=== PATIENT | female | born 2000 | race Caucasian/White ===

== ENCOUNTER → 2020-08-26 14:33 | Outpatient (CLI) | payer OTHER, SELFPAY ==
--- NOTE | 2020-08-26 14:36 | DI.US.S_ITS ---
PROCEDURE: US OB <= 14 WEEKS FETUS INDICATIONS: DATING AND VIABILITY. IUD REMOVED MAY 2020. OUTSIDE/PRIOR DATING DATA: First dating scan (date and location): 08/26/2020. Estimated date of delivery (ROSELIA) from first dating scan: 03/02/2021. TECHNIQUE: Real-time scanning was performed of the fetus and maternal pelvic organs, with image documentation. Endovaginal scanning was also performed to better visualize the fetus and maternal ovaries. COMPARISON: None. FINDINGS: Embryo: Cable-rump length measures 6.8 cm corresponding to 13 weeks 1 day Heart rate: 158 Measurement variability in dating: +/- 4 weeks by LMP, +/- 7 days by mean sac diameter (use before 6 weeks gestation if crown-rump length not able to be measured), +/- 5 days by crown-rump length (up to 8 weeks 6 days gestation), +/- 7 days by crown-rump length (up to 13 weeks 6 days gestation). Maternal organs: Right ovary not well visualized and grossly normal appearance left ovary. IMPRESSION: 13 week 1 day single living IUP Dictated by: Enrico Benites [facility] Interpreted: Onelia Arreguin MD on 08/26/2020 at 16:32 Transcribed by: HERMINIA on 08/26/2020 at 16:33 Approved by: Onelia Arreguin M.D. on 08/26/2020 at 18:59
[2020-08-26 15:06] LABS: Add Manual Diff / Slide Review NO; Basophils Absolute Auto 0 /uL (0-100); Basophils Percent Auto 0.2 % (0-2); Eosinophils Absolute Auto 100 /uL (0-450); Eosinophils Percent Auto 0.8 % (2-4); Hematocrit 37.9 % (36-46); Hemoglobin 12.8 g/dL (12.0-16.0); Lymphocytes Absolute Auto 1900 /uL (1100-4500); Lymphocytes Percent Auto 23.2 % (25-40); Mean Corpuscular HGB Conc 33.8 % (30-36); Mean Corpuscular Volume 85.7 fL (80-100); Monocytes Absolute Auto 400 /uL (0-900); Monocytes Percent Auto 4.7 % (3-14); Neutrophils Absolute Auto 5900 /uL (1500-7000); Neutrophils Percent Auto 71.1 % (50-75); Platelet Count 268 X10^3/uL (150-400); Red Blood Cell Count 4.42 X10^6/uL (4.0-5.2); White Blood Cell Count 8.3 X10^3/uL (4.5-11.0)
[2020-08-26 16:48] LABS: Hepatitis B Surface Antigen NEGATIVE s/c (NEGATIVE)
[2020-08-26 17:00] LABS: Appearance Urine UA CLOUDY; Bilirubin Urine UA NEGATIVE (NEGATIVE); Color Urine UA YELLOW; Glucose Urine UA NEGATIVE (Negative); Ketones Urine UA NEGATIVE (NEGATIVE); Leukocyte Esterase Urine UA NEGATIVE (NEGATIVE); Nitrite Urine UA NEGATIVE (Negative); Occult Blood Urine UA NEGATIVE (Negative); Protein Urine UA NEGATIVE (Negative); Urobilinogen Urine UA 0.2 E.U./dL (0.2)
[2020-08-26 17:02] LABS: pH Urine UA 6.5 (4.5-8.0)
[2020-08-26 17:05] LABS: HIV 1 & 2 Ab/Ag 4th Gen Combo NEGATIVE (NEGATIVE); Hep C Virus Ab w/Reflex Quant NEGATIVE s/c (NEGATIVE)
[2020-08-27 06:16] LABS: RPR Screen Non Reactive (Non Reactive)
[2020-08-27 07:58] LABS: Varicella IgG Antibody 2086 index (Immune >165)
== END ==
PROVIDERS: Referring Provider Obstetrics & Gynecology; Visit Provider Obstetrics & Gynecology
DX: Z34.81 Encounter for supervision of other normal pregnancy, first trimester (principal); Z3A.13 13 weeks gestation of pregnancy
CPT/HCPCS: 36415; 76801; 76830; 80055; 81003; 86787; 86803; 86850; 86900; 86901; 87086; 87389

== ENCOUNTER → 2020-09-09 11:19 | Outpatient (CLI) | payer OTHER, MEDICAID, SELFPAY | PROVIDERS: PCP Student in an Organized Health Care Education/Training Program; Referring Provider Obstetrics & Gynecology; Visit Provider Obstetrics & Gynecology | DX: Z34.91 Encounter for supervision of normal pregnancy, unspecified, first trimester (principal); Z36.0 Encounter for antenatal screening for chromosomal anomalies | CPT/HCPCS: 36415 ==

== ENCOUNTER 2020-09-23 16:52 | Observation (INO) | payer OTHER, MEDICAID, SELFPAY ==
[2020-09-23 18:10] LABS: RBC Urine None Seen (0-5/HPF)
[2020-09-23 18:14] LABS: Appearance Urine UA SL CLOUDY; Bilirubin Urine UA NEGATIVE (NEGATIVE); Color Urine UA YELLOW; Glucose Urine UA NEGATIVE (Negative); Ketones Urine UA NEGATIVE (NEGATIVE); Leukocyte Esterase Urine UA NEGATIVE (NEGATIVE); Nitrite Urine UA NEGATIVE (Negative); Occult Blood Urine UA NEGATIVE (Negative); Protein Urine UA NEGATIVE (Negative); Urobilinogen Urine UA 0.2 E.U./dL (0.2)
[2020-09-23 18:26] LABS: Amorphous Sediment Urine 1+; Bacteria Urine Few (2-10); Culture Indicated Urine Specimen Cultured; Mucus Urine 1+ (Negative); Squamous Epithelial Cell Urine 5-10 /HPF (0-5/HPF); WBC Urine 1-5/HPF (0-5/HPF)
== END 2020-09-23 18:00 | disposition home or self-care (01) ==
LOC: LABOR 16:55
PROVIDERS: Admitting Provider Obstetrics & Gynecology; PCP Student in an Organized Health Care Education/Training Program; Referring Provider Obstetrics & Gynecology; Visit Provider Obstetrics & Gynecology
DX: R51.9 Headache, unspecified (principal); Z20.822 Contact with and (suspected) exposure to COVID-19
CPT/HCPCS: 81001; 87086; 87635; G0378; G0379

== ENCOUNTER → 2020-09-23 18:24 | Outpatient (CLI) | payer OTHER, MEDICAID, SELFPAY ==
[2020-09-23 19:49] LABS: COVID19 -Nasal RAPID Negative (Negative)
== END ==
PROVIDERS: PCP Student in an Organized Health Care Education/Training Program; Visit Provider Nurse Practitioner
DX: R51.9 Headache, unspecified (principal); Z20.822 Contact with and (suspected) exposure to COVID-19
CPT/HCPCS: 87635

== ENCOUNTER → 2020-10-06 09:09 | Outpatient (CLI) | payer OTHER, MEDICAID, SELFPAY ==
[2020-10-08 19:24] LABS: AFP Value 38.4 ng/mL (.); Insulin Dep Diabetes No (.); OSBR Risk 1IN 10000 (.); Results Report (.); Test Results *Screen Negative* (.)
== END ==
PROVIDERS: PCP Student in an Organized Health Care Education/Training Program; Referring Provider Obstetrics & Gynecology; Visit Provider Obstetrics & Gynecology
DX: Z34.82 Encounter for supervision of other normal pregnancy, second trimester (principal); Z3A.19 19 weeks gestation of pregnancy
CPT/HCPCS: 36415; 82105

== ENCOUNTER → 2020-10-15 14:58 | Outpatient (CLI) | payer OTHER, MEDICAID, SELFPAY ==
--- NOTE | 2020-10-15 15:00 | DI.US.S_ITS ---
PROCEDURE: US OB >= 14 WEEKS FETUS INDICATIONS: Anatomy Scan OUTSIDE/PRIOR DATING DATA: First dating scan (date and location): 08/26/2020 . Estimated date of delivery (ORSELIA) from first dating scan: 03/02/2021 . TECHNIQUE: Real-time scanning was performed of the fetus, with image documentation and biometric measurements. Endovaginal scanning: No COMPARISON: [facility], , OB >= 14 WEEKS FETUS, 10/06/2020, 8:58. FINDINGS: General: A single living intrauterine gestation is present. Presentation: Vertex. Placenta: Placental position is anterior , without previa. Amniotic fluid index: 16.0 cm, normal range is 5-24 cm. heart rate: 153 beats per minute. Maternal cervical canal: 3.3 cm long. Normal lower limit is 2.5 cm. Possible lower uterine segment uterine synechiae. biometrics: Biparietal diameter: 20 weeks 6 days Head circumference: 20 weeks 4 days Abdominal circumference: 20 weeks 3 days Femur length: 20 weeks 1 day Estimated gestational age from initial scan: 20 weeks 2 days Composite gestational age from present scan: 20 weeks 4 days Estimated weight and percentile: 346 g; 47th percentile Measurement variability for biometric dating: +/- 7 days from 14 weeks to 15 weeks 6 days gestation, +/- 10 days from 16 weeks to 21 weeks 6 days gestation, +/- 2 weeks from 22 weeks to 27 weeks 6 days gestation, +/- 3 weeks for 28 weeks gestation or later. weight reference: 4500 g or EFW >90/95% is considered macrosomia or large for gestational age. EFW <10% is small for gestational age. EFW 5% or less is considered intra-uterine growth restriction. Anatomic survey: Neuro: Ventricles are non-dilated at less than 10 mm. Cisterna magna is normal at 3-11 mm. Cerebellum is normal in size and morphology. Nuchal skin fold: Normal at less than 6 mm between 14-21 weeks gestational age. Face: Nose and lips, facial profile are normal. Spine: No evidence for spina bifida. Heart: 4-chambered heart is present, with normal ventricular outflow tracts. Diaphragm: Diaphragm is intact. Stomach: Left-sided stomach is present. Kidneys: No hydronephrosis. Normal is less than 5 mm in 2nd trimester, less than 7 mm in 3rd trimester. Cord: 3-vessel cord has orthotopic insertion. Bladder: Normal in size. Extremities: All 4 extremities identified. IMPRESSION: 1. Normal interval growth. 2. Normal anatomic survey. Dictated by: Enrico Benites [facility] Interpreted: Everardo Hill MD on 10/15/2020 at 16:12 Transcribed by: BERNADETTE on 10/15/2020 at 16:13 Approved by: Everardo Hill M.D. on 10/15/2020 at 16:28
== END ==
PROVIDERS: PCP Student in an Organized Health Care Education/Training Program; Referring Provider Obstetrics & Gynecology; Visit Provider Obstetrics & Gynecology
DX: Z34.92 Encounter for supervision of normal pregnancy, unspecified, second trimester (principal); Z3A.20 20 weeks gestation of pregnancy
CPT/HCPCS: 76811

== ENCOUNTER → 2020-11-10 12:52 | Outpatient (CLI) | payer OTHER, MEDICAID, SELFPAY ==
[2020-11-10 14:07] LABS: Hematocrit 36.1 % (36-46); Hemoglobin 11.8 g/dL (12.0-16.0)
[2020-11-10 14:25] LABS: GTT (PREG) 1 Hour PP 50gm Dose 138 mg/dL (76-139)
== END ==
PROVIDERS: PCP Student in an Organized Health Care Education/Training Program; Referring Provider Obstetrics & Gynecology; Visit Provider Obstetrics & Gynecology
DX: Z34.82 Encounter for supervision of other normal pregnancy, second trimester (principal); Z3A.25 25 weeks gestation of pregnancy
CPT/HCPCS: 36415; 82950; 85014; 85018

== ENCOUNTER 2020-11-26 17:22 | Observation (INO) | payer OTHER, MEDICAID, SELFPAY ==
[2020-11-26 18:42] LABS: Appearance Urine UA CLEAR; Bilirubin Urine UA NEGATIVE (NEGATIVE); Color Urine UA YELLOW; Glucose Urine UA NEGATIVE (Negative); Ketones Urine UA 1+ (NEGATIVE); Leukocyte Esterase Urine UA NEGATIVE (NEGATIVE); Nitrite Urine UA NEGATIVE (Negative); Occult Blood Urine UA NEGATIVE (Negative); Protein Urine UA NEGATIVE (Negative); Specific Gravity Urine UA 1.025 (1.000-1.035); Urobilinogen Urine UA 0.2 E.U./dL (0.2)
[2020-11-26] MEDS: NIFEdipine 10 MG CAPSULE PO ×4 (18:43→19:55)
[2020-11-26 19:07] LABS: Bacteria Urine Few (2-10); Culture Indicated Urine Cult Not Indicated; RBC Urine 0-1/HPF (0-5/HPF); Squamous Epithelial Cell Urine 10-30 /HPF (0-5/HPF); WBC Urine 1-5/HPF (0-5/HPF)
--- NOTE | 2020-11-26 19:22 | DI.US.S_ITS ---
PROCEDURE: US OB LIMITED INDICATIONS: UTERINE IRRITABILITY; CERVICAL LENGTH OUTSIDE/PRIOR DATING DATA: Last menstrual period (LMP): Unknown . LMP-based estimated date of delivery (ROSELIA): Unknown LMP First dating scan (date and location): 08/26/2020 Estimated date of delivery (ROSELIA) from first dating scan: 03/02/2021 TECHNIQUE: Real-time scanning was performed of the fetus, with image documentation. COMPARISON: None. FINDINGS: A single living intrauterine gestation is present. Presentation: Vertex Placenta: Placental position is anterior , without previa. Amniotic fluid index: 21.8 cm cm, normal range is 5-24 cm. heart rate: 141 beats per minute. Maternal cervical canal: 3.1 cm long. Normal lower limit is 2.5 cm. Estimated gestational age from initial scan: 26 weeks 2 days . IMPRESSION: 1. Estimated gestational age 26 weeks 2 days. 2. The cervix is closed measuring 3.1 cm. Dictated by: Ruben Benitez M.D. on 11/26/2020 at 20:56 Approved by: Ruben Benitez M.D. on 11/26/2020 at 20:57
--- NOTE | 2020-11-26 20:15 | PM.OBTRLD ---
Visit Information Visit Information Date of evaluation: 11/26/20 Primary OB Provider: Mica Anderson On-call OB Provider: Qamar Rosales Reason for Evaluation: Yes pre-term labor Comments/Additional reasons for admission: Remigio was sent to the [facility] from the office after being seen for a variety of complaints. She had started having uterine cramps on the afternoon of 11/26/2020 while at work. Her cramps subsided after arrival at the office but she was sent for further evaluation on the . While on the thus far, the patient has received oral and IV hydration as well as 4 doses of nifedipine 10 mg p.o. Q 20 minutes with her contractions having subsided somewhat but she continues to have uterine irritability. Ultrasound obtained which shows cervical length to be 3.1 cm but transvaginal study was performed before FFN, GBS, GC/CT could be obtained. Vital Signs Vital Signs: See OBIX VS record [facility] Medical History Anxiety (~2012) Chlamydia (~2014) Chronic nasal congestion (~2011) Depression (~2012) Fatty liver disease, nonalcoholic (~12/2019) Gonorrhea (~2018) History of multiple miscarriages Migraine (~08/2020) Ovarian cyst (~2018) Post depression (~2016) PTSD (post-traumatic stress disorder) Smoker (spontaneous vaginal delivery) (~12/12/16) (spontaneous vaginal delivery) (~12/13/19) Surgical History [facility] teeth extracted (~2015) Family History Father Drug addiction in remission Mother Fibromyalgia Diabetes mellitus Type 2 diabetes mellitus Degenerative disc disease Anxiety Depression Drug addiction in remission Grandfather No problems noted. 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.) current occupational exposures/hazards: Yes special raymond needs: No Smoking Status: Current every day smoker (1.5 packs per day : now down to 2 per day) Tobacco: How many years used: 5 second hand exposure: Yes alcohol intake: former (pre- : very, very occasionally ) substance use type: does not use and marijuana (H/O Marijuana use) Exam Const General: cooperative and anxious (Hx of anxiety disorder) Orientation: alert and oriented x3 HENMT Head: normocephalic and atraumatic Nose: external nose normal Face and sinus: face symmetric Eyes Conjunctivae: conjunctivae normal Sclera: sclerae normal EOM: EOM intact bilaterally GI Inspection: other (Gravid) Palpation: soft and no hepatosplenomegaly General: other (Exam deferred due to TVUS having been performed earlier) Uterus Location (Fundal Height): 26 Psych Speech and Movement: restless Mood: anxious mood Affect: animated Attitude: guarded Thought Process: other Thought Content: normal Judgment: fair Objective Labs Labs: Laboratory Results - last 24 hr 11/26/20 18:05 Urine Color Yellow Urine Appearance Clear Urine pH 6.0 Ur Specific [place] 1.025 Urine Protein Negative Urine Glucose (UA) Negative Urine Ketones 1+ H Urine Occult Blood Negative Urine Nitrate Negative Urine Bilirubin Negative Urine Urobilinogen 0.2 Ur Leukocyte Esterase Negative Urine RBC 0-1/hpf Urine WBC 1-5/hpf Ur Squamous Epith Cells 10-30 /hpf H Urine Bacteria Few (2-10) H Ur Culture Indicated? Cult not indicated Evaluation Evaluation Baseline heart rate: 160 Variability: Average (6-10) monitor accelerations: Present Monitor Decelerations: Absent Contraction Frequency (minutes): 5 Uterine Contraction Intensity: Mild Category of Tracing: Reactive Status: Category l Diagnosis, Plan/Disposition Final Diagnosis (1) Premature uterine contractions causing threatened premature labor: Status: Acute (2) Headache in , antepartum: Status: Acute Plan/Disposition Plan: IV Hydration and PO nifedipine have significantly decreased but not eliminated the patient's uterine irritability. Nurse-led efforts to reduce the patient's anxiety have been successful however and her uterine irritability has finally stopped. Patient to receive a 30 mg XR dose of nifedipine prior to discharge and a prescription for 10 mg Nifedipine every 20 minutes x 4 doses should her uterine irritability return. If those 4 doses of nifedipine do not promptly terminate the uterine irritability, the patient was instructed contact the office immediately for further evaluation. A note for work was provided so that she can be off tomorrow. OB Disposition: home
[2020-11-26] MEDS: BUTALB/APAP/CAFFEINE 50/325/40 TABLET 2 EACH PO (21:17)
== END 2020-11-26 21:30 | disposition home or self-care (01) ==
PROVIDERS: Student in an Organized Health Care Education/Training Program; Admitting Provider Obstetrics & Gynecology; PCP Student in an Organized Health Care Education/Training Program; Referring Provider Obstetrics & Gynecology; Visit Provider Obstetrics & Gynecology
DX: O47.02 False labor before 37 completed weeks of gestation, second trimester (principal); O26.892 Other specified pregnancy related conditions, second trimester; R51.9 Headache, unspecified; Z3A.26 26 weeks gestation of pregnancy
CPT/HCPCS: 59025; 59050; 76815; 76817; 81001; 96360; G0378; G0379

== ENCOUNTER → 2020-12-29 15:09 | Outpatient (ROUT) | payer OTHER, MEDICAID, SELFPAY ==
[2020-12-29 15:48] LABS: Fetal Fibronectin Negative
== END ==
PROVIDERS: PCP Student in an Organized Health Care Education/Training Program; Visit Provider Obstetrics & Gynecology
DX: Z34.83 Encounter for supervision of other normal pregnancy, third trimester (principal); Z3A.31 31 weeks gestation of pregnancy
CPT/HCPCS: 82731

== ENCOUNTER 2021-01-24 18:13 | Outpatient (CLI) | payer OTHER, MEDICAID, SELFPAY ==
[2021-01-24 18:47] LABS: Appearance Urine UA SL CLOUDY; Bilirubin Urine UA NEGATIVE (NEGATIVE); Color Urine UA YELLOW; Glucose Urine UA NEGATIVE (Negative); Ketones Urine UA NEGATIVE (NEGATIVE); Leukocyte Esterase Urine UA NEGATIVE (NEGATIVE); Nitrite Urine UA NEGATIVE (Negative); Occult Blood Urine UA NEGATIVE (Negative); Protein Urine UA NEGATIVE (Negative); Urobilinogen Urine UA 0.2 E.U./dL (0.2)
[2021-01-24 18:49] LABS: pH Urine UA 6.5 (4.5-8.0)
[2021-01-24 19:23] LABS: Bacteria Urine Few (2-10); Culture Indicated Urine Cult Not Indicated; Mucus Urine 1+ (Negative); RBC Urine None Seen (0-5/HPF); Squamous Epithelial Cell Urine 1-5 /HPF (0-5/HPF); Transitional Epi Cells Urine 1-5/HPF (0-5/HPF); WBC Urine 1-5/HPF (0-5/HPF)
== END 2021-01-24 19:45 | disposition home or self-care (01) ==
LOC: LABOR 18:55 → OB 01-25 14:23
PROVIDERS: PCP Student in an Organized Health Care Education/Training Program; Referring Provider Obstetrics & Gynecology; Visit Provider Obstetrics & Gynecology
DX: Z03.71 Encounter for suspected problem with amniotic cavity and membrane ruled out (principal); Z3A.34 34 weeks gestation of pregnancy
CPT/HCPCS: 59025; 81001; 87210; G0378; G0379

== ENCOUNTER → 2021-01-26 11:02 | Outpatient (CLI) | payer OTHER, MEDICAID, SELFPAY ==
[2021-01-27 07:52] LABS: Strep Grp B PCR NEG for Grp B Strep
== END ==
PROVIDERS: PCP Student in an Organized Health Care Education/Training Program; Visit Provider Obstetrics & Gynecology
DX: Z34.83 Encounter for supervision of other normal pregnancy, third trimester (principal); Z3A.35 35 weeks gestation of pregnancy
CPT/HCPCS: 87653

== ENCOUNTER 2021-01-29 15:29 | Outpatient (CLI) | payer OTHER, MEDICAID, SELFPAY | END 2021-01-29 16:19 | disposition home or self-care (01) | LOC: OB 01-31 09:46 | PROVIDERS: PCP Student in an Organized Health Care Education/Training Program; Referring Provider Specialist; Visit Provider Specialist | DX: O47.03 False labor before 37 completed weeks of gestation, third trimester (principal); O99.333 Smoking (tobacco) complicating pregnancy, third trimester; F17.210 Nicotine dependence, cigarettes, uncomplicated; Z3A.36 36 weeks gestation of pregnancy | CPT/HCPCS: 59025; G0378; G0379 ==

== ENCOUNTER 2021-02-05 15:44 | Outpatient (CLI) | payer OTHER, MEDICAID, SELFPAY | END 2021-02-05 16:35 | disposition home or self-care (01) | LOC: LABOR 15:48 → OB 02-07 14:43 | PROVIDERS: PCP Student in an Organized Health Care Education/Training Program; Referring Provider Obstetrics & Gynecology; Visit Provider Obstetrics & Gynecology | DX: Z03.71 Encounter for suspected problem with amniotic cavity and membrane ruled out (principal); O36.8130 Decreased fetal movements, third trimester, not applicable or unspecified; Z3A.36 36 weeks gestation of pregnancy | CPT/HCPCS: 59025; 84112; G0378; G0379 ==

== ENCOUNTER 2021-02-14 14:58 | Outpatient (CLI) | payer OTHER, MEDICAID, SELFPAY | END 2021-02-14 15:44 | disposition home or self-care (01) | LOC: OB 02-15 07:31 | PROVIDERS: PCP Student in an Organized Health Care Education/Training Program; Referring Provider Obstetrics & Gynecology; Visit Provider Obstetrics & Gynecology | DX: O47.1 False labor at or after 37 completed weeks of gestation (principal); Z3A.37 37 weeks gestation of pregnancy | CPT/HCPCS: 59025; G0378; G0379 ==

== ENCOUNTER 2021-02-23 07:03 | Inpatient (IN) | payer OTHER, MEDICAID, SELFPAY ==
[2021-02-23 08:29] LABS: COVID19 -Nasal RAPID Negative (Negative)
[2021-02-23] MEDS: LACTATED RINGERS 1,000 ML 100 ML IV ×2 (08:45→12:29)
[2021-02-23] MEDS: OXYTOCIN PREMIX 30 UNIT/500 ML PLAST..BAG IV (08:46)
[2021-02-23] MEDS: CALCIUM CARBONATE 500 MG TAB 1000 MG PO ×3 (08:52→14:17)
[2021-02-23 08:54] LABS: Add Manual Diff / Slide Review NO; Basophils Absolute Auto 0 /uL (0-100); Basophils Percent Auto 0.4 % (0-2); Eosinophils Absolute Auto 0 /uL (0-450); Eosinophils Percent Auto 0.4 % (2-4); Hematocrit 32.9 % (36-46); Hemoglobin 10.9 g/dL (12.0-16.0); Lymphocytes Absolute Auto 2100 /uL (1100-4500); Lymphocytes Percent Auto 19.4 % (25-40); Mean Corpuscular HGB Conc 33.2 % (30-36); Mean Corpuscular Hemoglobin 28.1 PG (26-34); Mean Corpuscular Volume 84.5 fL (80-100); Monocytes Absolute Auto 800 /uL (0-900); Monocytes Percent Auto 7.2 % (3-14); Neutrophils Absolute Auto 7900 /uL (1500-7000); Neutrophils Percent Auto 72.6 % (50-75); Platelet Count 233 X10^3/uL (150-400); Red Blood Cell Count 3.89 X10^6/uL (4.0-5.2); Red Cell Distribution Width 13.7 % (11.6-14.8); White Blood Cell Count 10.9 X10^3/uL (4.5-11.0)
[2021-02-23 10:34] VITALS: BP 116/76
--- NOTE | 2021-02-23 12:37 | P.HPOB_ITS ---
OB HPI Date/Time Date of admission: 02/23/21 Date Patient Seen: 02/23/21 Time Patient Seen: 12:37 History of Present Condition Chief complaint: OBS : 7 Para: 2 Estimated Date of Delivery: 03/02/21 Estimated Gestational Age (weeks): 39 Narrative: Remigio Dela Cruz is a 20 year old female admitted for induction for prolonged prodromal labor Indications Indication for induction OB: maternal discomfort History of Present care: good care, initiated at week # (15), number of visits (12) and pounds weight gain (18) Dating criteria: based on 2nd trimester US only Ultrasounds: normal mid trimester US Obstetrical complications: none Medical complications: none Preadmission Labs Blood type: O (+) positive -: Antibody screen: negative, GBS status: negative, HBsAG: negative, HIV: negative and RPR/VDLR: negative -: Chlamydia screen: not detected and Gonorrhea screen: not detected -: Rubella: not immune and Varicella: immune HCAB: negative Cell-free DNA: Normal male 1 hr GTT: 138 Prior (ies) History: 12/12/2016 37 week gestation 6 lb 14 oz male vaginal delivery with epidural 12/13/2019 36 week gestation 5 lb 2 oz male vaginal delivery induced for oligohydramnios epidural Evaluation Evaluation Baseline heart rate: 125 Variability: Moderate (11-25) monitor accelerations: Present Monitor Decelerations: Absent Category of Tracing: Reactive Status: Category l Dilation (cm): 4 Effacement (%): 85 station: -1 Position of cervix: mid Consistency: soft [facility] Medical History (Updated 02/16/21 @ 10:07 by Qamar Rosales MD) Anxiety (~2012) Chlamydia (~2014) Chronic nasal congestion (~2011) Depression (~2012) Fatty liver disease, nonalcoholic (~12/2019) Gonorrhea (~2018) History of multiple miscarriages Migraine (~08/2020) Ovarian cyst (~2018) Post depression (~2016) Premature uterine contractions causing threatened premature labor PTSD (post-traumatic stress disorder) Smoker (spontaneous vaginal delivery) (~12/12/16) (spontaneous vaginal delivery) (~12/13/19) Surgical History [place] teeth extracted (~2015) Family History Father Drug addiction in remission Mother Fibromyalgia Diabetes mellitus Type 2 diabetes mellitus Degenerative disc disease Anxiety Depression Drug addiction in remission Grandfather No problems noted. 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.) current occupational exposures/hazards: Yes special raymond needs: No Smoking Status: Former smoker Tobacco: How many years used: 5 second hand exposure: Yes alcohol intake: former (pre- : very, very occasionally ) substance use type: does not use and marijuana (H/O Marijuana use) Meds Home Medications and Allergies Home Medications Medication Instructions Recorded Confirmed Type prenat.vits,lalo,pfs-fzsl-afopl 1 tab PO DAILY 08/31/20 02/23/21 History butalbital 50 mg-acetaminophen 300 1 cap PO Q4H PRN #30 cap 11/26/20 02/23/21 Rx mg-caffeine 40 mg-codeine 30 mg cap (Fioricet with Codeine) meclizine 25 mg tablet 25 mg PO QID #30 tab 11/26/20 02/23/21 Rx Allergies Allergy/AdvReac Type Severity Reaction Status Date / Time No Known Drug Allergies Allergy Verified 02/09/21 11:05 Review of Systems Review of Systems Narrative: Patient has been having good movement. No leakage of fluid. No headaches, scotomata, epigastric pain. OB Exam Narrative Exam Narrative: Blood pressure 113/75, pulse 67, temperature 35.7? HEENT exam within normal limits. Lungs are clear to auscultation percussion. Heart is regular rate and rhythm no S3-S4 murmurs. Abdomen is gravid. Fetus is vertex. Extremities without edema and nontender. Objective Labs Result Diagrams: 02/23/21 08:40 Labs: Laboratory Results - last 24 hr 02/23/21 02/23/21 02/23/21 07:55 08:40 08:40 WBC 10.9 RBC 3.89 L Hgb 10.9 L Hct 32.9 L MCV 84.5 MCH 28.1 MCHC 33.2 RDW 13.7 Plt Count 233 Neut % (Auto) 72.6 Lymph % (Auto) 19.4 L [place] % (Auto) 7.2 Eos % (Auto) 0.4 L Baso % (Auto) 0.4 Neut # (Auto) 7900 H Lymph # (Auto) 2100 [place] # (Auto) 800 Eos # (Auto) 0 Baso # (Auto) 0 SARS-CoV-2 (PCR) Negative Blood Type O Positive Antibody Screen Negative Assessment and Plan Assessment and Plan Assessment and Plan narrative: 39 week gestation admitted for induction for maternal discomfort. Patient underwent a AROM for clear fluid. She is requesting epidural when needed for pain. Anticipate vaginal delivery. Time Spent with Patient Total time spent with greater than 50% in coordination of care (as documented) at patient's floor/unit and/or counseling patient:: less than 15 minutes
--- NOTE | 2021-02-23 13:07 | PM.AN.REGBLK ---
Regional Block Pre-procedure Procedure: Continuous Lumbar Epidural for L&D Attending OB provider: Francy Albert PMH/ROS narrative: term labor, no complications ASA Class: II Labs: Hct 32.9 % (36-46) L 02/23/21 08:40 Plt Count 233 X10^3/uL (150-400) 02/23/21 08:40 Medications: Current Medications Generic Name Dose Route Start Last Admin Trade Name Freq PRN Reason Stop Dose Admin Calcium Carbonate 1,000 mg 02/23/21 07:55 02/23/21 11:04 Calcium Carbonate 500 Mg Tab PO 1,000 mg Q2HR PRN Administration Dyspepsia Carboprost Tromethamine 250 mcg 02/23/21 07:55 Carboprost 250 Mcg/Ml Ampul IM Q90M PRN Bleeding Diphenhydramine HCl 25 mg 02/23/21 11:44 Diphenhydramine 50 Mg/Ml Vial IV Q10M PRN Pruritis Lactated Ringer's 1,000 mls @ 100 mls/hr 02/23/21 08:00 02/23/21 12:29 Lactated Ringers IV 100 mls/hr CONT FRANDY Administration Oxytocin/Lactated Ringer's 30 unit in 500 mls @ 200 mls/hr 02/23/21 07:55 Oxytocin Premix IV CONT PRN Bleeding Protocol Tranexamic Acid 1,000 mg/ 100 mls @ 200 mls/hr 02/23/21 07:55 Sodium Chloride IV NOW PRN Bleeding Oxytocin/Lactated Ringer's 30 unit in 500 mls @ 3 mls/hr 02/23/21 08:00 02/23/21 08:46 Oxytocin Premix IV 3 milliunit/min TITRATE FRANDY 3 mls/hr Administration Protocol 3 MILLIUNIT/MIN FENT 2MCG/ML BUPIV 0.125% EPI 200 mcg in 100 mls @ 6 mls/hr 02/23/21 11:45 Fentanyl/Bupiv/Ns 2mcg/Ml - 0.125% EPIDURAL CONT FRANDY Methylergonovine Maleate 0.2 mg 02/23/21 07:55 Methylergonovine 0.2 Mg Tablet PO Q6HR PRN Heavy Bleeding Methylergonovine Maleate 0.2 mg 02/23/21 07:55 Methylergonovine 0.2 Mg/Ml Vial IM NOW PRN Bleeding Misoprostol 800 mcg 02/23/21 07:55 Misoprostol 200 Mcg Tablet MT NOW PRN Bleeding Misoprostol 1,000 mcg 02/23/21 07:55 Misoprostol 200 Mcg Tablet MT NOW PRN Bleeding Misoprostol 400 mcg 02/23/21 07:55 Misoprostol 200 Mcg Tablet SL NOW PRN Bleeding Nalbuphine HCl 2.5 mg 02/23/21 11:44 Nalbuphine 20 Mg/Ml Ampul IV Q10M PRN Pruritis Ondansetron HCl 4 mg 02/23/21 07:55 Ondansetron 4 Mg/2 Ml Inj IV Q4HR PRN Nausea And Vomiting Oxytocin 10 unit 02/23/21 07:55 Oxytocin 10 Unit/Ml Vial IM NOW PRN Bleeding Allergies: Allergies Allergy/AdvReac Type Severity Reaction Status Date / Time No Known Drug Allergies Allergy Verified 02/09/21 11:05 Procedure Insertion date: 02/23/21 Insertion time: 13:53 Prep/Local: betadine x3 and 1% lidocaine Interspace: L3-4 Patient position: sitting Needle: 18 gauge Youxigu (CSE: 27g Pencan through Hustead, clear CSF, 1mL 0.25% MPF bupiv) Loss of resistance with: saline CINTIA at (cm): 7 Catheter placed at SKIN (cm): 13 Catheter in SPACE (cm): 6 Insertion: No CSF, No Blood, No Paresthesia with insertion, No Paresthesia with injection and No Test dose reaction Initial Medications TEST DOSE time: 13:53 TEST DOSE: 1.5% lidocaine with epinephrine 1:200k (mL): 3 BOLUS DOSE time: 14:01 BOLUS DOSE (mL): 3 BOLUS DOSE med: other (infusate) Infusion INFUSION: 0.125% bupivacaine and with fentanyl 2 mcg/mL Initial rate (mL/hr): 8 Subsequent interventions: Post-procedure Anesthesia time START: 13:45 Anesthesia time END: 16:07 Post-procedure Anesthesia Assessment: Yes CV function: HR/BP stable, Yes Resp function: RR/sat/airway adequate, Yes Mental status appropriate and No Anesthesia complications
[2021-02-23] MEDS: FENT 2MCG/ML BUPIV 0.125% EPI 200 MCG/100 ML PLAST..BAG 6 MCG EPIDURAL (13:55)
--- NOTE | 2021-02-23 16:54 | P.PCNOB_ITS ---
Labor & Delivery Delivery date: 02/23/21 Intrapartal Events: None Cervical ripening method: none Induction method: per pitocin protocol Delivery augmentation: rupture of membranes Delivery monitor: external FHT and external uterine Route of delivery: L&D Laceration Description: None Estimated blood loss (mL): 150 Anesthesia Type: Epidural Narrative: Patient arrived on Labor and delivery for induction for maternal discomfort. She was started on Pitocin. She had AROM for clear fluid. heart tones category 1 to category 2 throughout labor. She received an epidural catheter for pain control. She had a spontaneous vaginal delivery over an intact perineum. A tight nuchal cord was unable to be released prior to delivery of the baby. Requested the baby be placed on the warmer in clean prior to placing in the baby with the patient. The placenta delivered spontaneously, intact, with 3 vessels. There were no cervical, vaginal, or perineal tears. 1st stage of labor 3 hours and 21 minutes, 2nd stage of labor 14 minutes, 3rd stage of labor 3 minutes. Total rupture membranes 3 hours and 35 minutes. [place] Baby 1: gender: Male Presentation: vertex Position: Right Occiput Anterior Placenta delivery description: Spontaneous Cord Vessel Description: 3 Vessels and Tight score (1 min): 9 score (5 min): 9 weight: 6 lb 7 oz Plan for aftercare: Routine care
[2021-02-23] MEDS: IBUPROFEN 600 MG TABLET PO (19:12)
[2021-02-23] MEDS: DOCUSATE 100 MG CAPSULE PO (19:13)
[2021-02-23] MEDS: ACETAMINOPHEN 325 MG TABLET 650 MG PO (23:14)
[2021-02-23] MEDS: LANOLIN OINT 7 GM 1 APPLIC TOP (23:15)
[2021-02-24] MEDS: IBUPROFEN 600 MG TABLET PO ×2 (01:43→08:19)
[2021-02-24 07:26] LABS: Add Manual Diff / Slide Review NO; Basophils Absolute Auto 0 /uL (0-100); Basophils Percent Auto 0.5 % (0-2); Eosinophils Absolute Auto 100 /uL (0-450); Eosinophils Percent Auto 1.2 % (2-4); Hemoglobin 11.1 g/dL (12.0-16.0); Lymphocytes Absolute Auto 2000 /uL (1100-4500); Lymphocytes Percent Auto 20.5 % (25-40); Mean Corpuscular HGB Conc 33.7 % (30-36); Mean Corpuscular Hemoglobin 28.3 PG (26-34); Mean Corpuscular Volume 83.8 fL (80-100); Monocytes Absolute Auto 700 /uL (0-900); Monocytes Percent Auto 7.4 % (3-14); Neutrophils Absolute Auto 6900 /uL (1500-7000); Neutrophils Percent Auto 70.4 % (50-75); Platelet Count 220 X10^3/uL (150-400); Red Blood Cell Count 3.94 X10^6/uL (4.0-5.2); Red Cell Distribution Width 13.5 % (11.6-14.8); White Blood Cell Count 9.9 X10^3/uL (4.5-11.0)
--- NOTE | 2021-02-24 08:17 | PM.OBDS.1 ---
Discharge Providers Provider Date of admission: 02/23/21 07:03 Discharge Date: 02/24/21 Primary care physician: Lynn Green MD Consults: 02/23/21 08:00 Consult to Anesthesiology Urgent Comment: Consulting Provider: Trixie Baker Reason for consultation: epidural 02/24/21 16:52 Consult to Dye Automation Operator Routine Comment: Discharge provider: Francy Albert MD Summary Hospital Course Date Patient Seen: 02/24/21 Time Patient Seen: 08:17 Diagnoses: 39 week gestation, spontaneous vaginal delivery Hospital Course: Patient arrived on Labor and delivery to be induced for maternal discomfort. She was started on Pitocin. She received epidural catheter for pain control. She had a spontaneous vaginal delivery of a viable male with no tears. The patient is ambulatory. Pain is under control. Bleeding is moderate. No headaches, scotomata, epigastric pain. Peripartum Data Infant Delivery Method: Natural Vaginal Laceration Description: None Procedures: Pitocin induction, epidural catheter, spontaneous vaginal delivery complications: none 1: Gender: Male Disposition of : home Discharge Diagnosis (1) Vaginal delivery: Status: Acute Status at Discharge Cognitive/behavioral status at discharge: oriented Functional status at discharge: independent ambulation Overall status at discharge: patient is progressing back to baseline Time Spent with Patient Time attestation: Total time spent providing and/or coordinating discharge services: Time spent: Less than 30 minutes Objective Labs Result Diagrams: 02/24/21 06:59 Labs: Laboratory Results - last 24 hr 02/23/21 02/23/21 02/23/21 07:55 08:40 08:40 WBC 10.9 RBC 3.89 L Hgb 10.9 L Hct 32.9 L MCV 84.5 MCH 28.1 MCHC 33.2 RDW 13.7 Plt Count 233 Neut % (Auto) 72.6 Lymph % (Auto) 19.4 L [place] % (Auto) 7.2 Eos % (Auto) 0.4 L Baso % (Auto) 0.4 Neut # (Auto) 7900 H Lymph # (Auto) 2100 [place] # (Auto) 800 Eos # (Auto) 0 Baso # (Auto) 0 SARS-CoV-2 (PCR) Negative Blood Type O Positive Antibody Screen Negative 02/24/21 06:59 WBC 9.9 RBC 3.94 L Hgb 11.1 L Hct 33.0 L MCV 83.8 MCH 28.3 MCHC 33.7 RDW 13.5 Plt Count 220 Neut % (Auto) 70.4 Lymph % (Auto) 20.5 L [place] % (Auto) 7.4 Eos % (Auto) 1.2 L Baso % (Auto) 0.5 Neut # (Auto) 6900 Lymph # (Auto) 2000 [place] # (Auto) 700 Eos # (Auto) 100 Baso # (Auto) 0 SARS-CoV-2 (PCR) Blood Type Antibody Screen Exam Vital Signs (past 8 hours): Blood pressure 109/73, pulse 101, temperature 98? Narrative Exam Narrative: Abdomen is soft, nontender. Uterus is firm, at U-1, nontender. Perineum was intact. Mild lochia. Extremities without edema and nontender. Patient is Rh positive, rubella nonimmune so will get the rubella vaccine prior to discharge, she did received Tdap in the 3rd trimester. Discharge Plan Discharge Plan Patient Disposition: Home Discharge orders & Medications Prescriptions: New docusate sodium 100 mg Capsule 100 mg PO BID PRN (Reason: Constipation) Qty: 20 0RF ferrous sulfate [FeroSul] 325 mg (65 mg iron) tablet 325 mg PO DAILY Qty: 20 0RF ibuprofen [IBU] 600 mg tablet 600 mg PO Q6H PRN (Reason: pain) Qty: 20 0RF hydrocodone-acetaminophen 5-325 mg tablet 1 tab PO Q4-6H PRN (Reason: pain) Qty: 10 0RF Continued meclizine 25 mg tablet 25 mg PO QID Qty: 30 3RF ozcxquagsv-dqssaxtvak-eia-cod [Fioricet with Codeine] [id number] mg capsule 1 cap PO Q4H PRN (Reason: pain) Qty: 30 2RF prenat.vits,lalo,ggv-podt-ebiqg Tablet 1 tab PO DAILY 0RF Follow up/Referrals: Lynn Green MD [Primary Care Provider] - Mica Anderson MD [Physician] - 6 Weeks Diet/Activity/Treatments Diet: Regular Activity: nothing in vagina for 6 weeks Skin/Wound/Dressing Care Report to your healthcare provider any signs of infection, such as:: chills, fever Discharge Data Primary Care Provider: Lynn Green
[2021-02-24] MEDS: DOCUSATE 100 MG CAPSULE PO (08:18)
[2021-02-24] MEDS: FERROUS SULFATE 325 MG TABLET PO (08:19)
[2021-02-24 09:42] VITALS: BP 105/76; PULSE 81; RESP 18; TEMP 36.6
[2021-02-24] MEDS: ACETAMINOPHEN 325 MG TABLET 650 MG PO (12:05)
== END 2021-02-24 14:03 | disposition home or self-care (01) | DRG 807 ==
PROVIDERS: Specialist; Admitting Provider Obstetrics & Gynecology; PCP Student in an Organized Health Care Education/Training Program; Referring Provider Obstetrics & Gynecology; Visit Provider Obstetrics & Gynecology
DX: O63.0 Prolonged first stage (of labor) (principal); Z37.0 Single live birth; Z3A.39 39 weeks gestation of pregnancy; O69.1XX0 Labor and delivery complicated by cord around neck, with compression, not applicable or unspecified; Z20.822 Contact with and (suspected) exposure to COVID-19
CPT/HCPCS: 01967; 36415; 59050; 59400; 59409; 85025; 86850; 86900; 86901; 87635; C9803; G0379; J2590

== ENCOUNTER 2022-06-22 18:14 | Emergency (ER) | payer OTHER, SELFPAY ==
[2022-06-22 18:18] VITALS: BP 121/71; PULSE 100; RESP 18; TEMP 36.6; O2SAT 98; BMI 35.8
--- NOTE | 2022-06-22 19:43 | PC.NURSE ---
Unable to locate pt in lobby.
== END 2022-06-22 19:55 | disposition left against medical advice (07) ==
PROVIDERS: Emergency Provider Emergency Medicine; PCP Student in an Organized Health Care Education/Training Program
CPT/HCPCS: 99281

== ENCOUNTER → 2022-07-19 12:08 | Outpatient (CLI) | payer OTHER, SELFPAY ==
[2022-07-19 13:15] LABS: Add Manual Diff / Slide Review NO; Basophils Absolute Auto 0 /uL (0-100); Basophils Percent Auto 0.3 % (0-2); Eosinophils Absolute Auto 300 /uL (0-450); Eosinophils Percent Auto 2.8 % (2-4); Hematocrit 36.3 % (36-46); Hemoglobin 12.4 g/dL (12.0-16.0); Lymphocytes Absolute Auto 2600 /uL (1100-4500); Mean Corpuscular HGB Conc 34.2 % (30-36); Mean Corpuscular Hemoglobin 28.8 PG (26-34); Mean Corpuscular Volume 84.2 fL (80-100); Monocytes Absolute Auto 500 /uL (0-900); Monocytes Percent Auto 4.9 % (3-14); Neutrophils Absolute Auto 7000 /uL (1500-7000); Platelet Count 272 X10^3/uL (150-400); Red Blood Cell Count 4.31 X10^6/uL (4.0-5.2); Red Cell Distribution Width 12.4 % (11.6-14.8); White Blood Cell Count 10.4 X10^3/uL (4.5-11.0)
[2022-07-20 10:55] LABS: RPR Screen Non Reactive (Non Reactive); Varicella IgG Antibody 2102 index (Immune >165)
[2022-07-20 16:30] LABS: HIV 1 & 2 Ab/Ag 4th Gen Combo NEGATIVE (NEGATIVE); Hep C Virus Ab w/Reflex Quant NEGATIVE s/c (NEGATIVE); Hepatitis B Surface Antigen NEGATIVE s/c (NEGATIVE); Rubella Antibody IgG 10.8 IU/mL (>15)
== END ==
PROVIDERS: PCP Student in an Organized Health Care Education/Training Program; Referring Provider Obstetrics & Gynecology; Visit Provider Obstetrics & Gynecology
DX: Z34.81 Encounter for supervision of other normal pregnancy, first trimester (principal)
CPT/HCPCS: 36415; 80055; 86787; 86803; 86850; 86900; 86901; 87086; 87389

== ENCOUNTER → 2022-09-13 11:03 | Outpatient (CLI) | payer OTHER, SELFPAY ==
[2022-09-13 14:26] LABS: Urine Chlamydia NOT DETECTED; Urine N gonorrhoeae NOT DETECTED
== END ==
PROVIDERS: PCP Student in an Organized Health Care Education/Training Program; Visit Provider Specialist
DX: Z11.3 Encounter for screening for infections with a predominantly sexual mode of transmission (principal); Z20.2 Contact with and (suspected) exposure to infections with a predominantly sexual mode of transmission
CPT/HCPCS: 87491; 87591

== ENCOUNTER → 2022-09-13 11:06 | Outpatient (CLI) | payer OTHER, SELFPAY ==
[2022-09-14 03:06] LABS: HSV 2 IGG AB < 0.91 index (0.00-0.90); HSV1IGG < 0.91 index (0.00-0.90)
[2022-09-14 16:13] LABS: Hepatitis B Surface Antigen NEGATIVE s/c (NEGATIVE)
[2022-09-14 16:23] LABS: HIV 1 & 2 Ab/Ag 4th Gen Combo NEGATIVE (NEGATIVE); Hep C Virus Ab w/Reflex Quant NEGATIVE s/c (NEGATIVE)
[2022-09-15 21:33] LABS: AFP Value 40.7 ng/mL (.); Insulin Dep Diabetes No (.); OSBR Risk 1IN 10000 (.); Results Report (.); Test Results *Screen Negative* (.)
== END ==
PROVIDERS: PCP Student in an Organized Health Care Education/Training Program; Referring Provider Specialist; Visit Provider Specialist
DX: Z34.82 Encounter for supervision of other normal pregnancy, second trimester (principal); Z20.2 Contact with and (suspected) exposure to infections with a predominantly sexual mode of transmission; Z11.3 Encounter for screening for infections with a predominantly sexual mode of transmission; Z3A.18 18 weeks gestation of pregnancy
CPT/HCPCS: 36415; 82105; 86695; 86696; 86803; 87340; 87389; 87491; 87591

== ENCOUNTER → 2022-10-06 11:28 | Outpatient (CLI) | payer OTHER, SELFPAY ==
[2022-10-06 11:58] LABS: Appearance Urine UA CLEAR; Bilirubin Urine UA NEGATIVE (NEGATIVE); Color Urine UA YELLOW; Glucose Urine UA NEGATIVE (Negative); Ketones Urine UA NEGATIVE (NEGATIVE); Leukocyte Esterase Urine UA NEGATIVE (NEGATIVE); Nitrite Urine UA NEGATIVE (Negative); Occult Blood Urine UA NEGATIVE (Negative); Protein Urine UA NEGATIVE (Negative); Specific Gravity Urine UA >=1.030 (1.000-1.035)
[2022-10-06 12:00] LABS: pH Urine UA 6.5 (4.5-8.0)
[2022-10-06 12:08] LABS: Bacteria Urine Moderate (10-30); Culture Indicated Urine Specimen Cultured; Mucus Urine 2+ (Negative); RBC Urine None Seen (0-5/HPF); Squamous Epithelial Cell Urine >30 /HPF (0-5/HPF); WBC Urine 5-10/HPF (0-5/HPF)
== END ==
PROVIDERS: PCP Student in an Organized Health Care Education/Training Program; Referring Provider Specialist; Visit Provider Specialist
DX: R30.9 Painful micturition, unspecified (principal)
CPT/HCPCS: 81001; 87086

== ENCOUNTER → 2022-10-11 08:33 | Outpatient (CLI) | payer OTHER, SELFPAY ==
--- NOTE | 2022-10-11 08:34 | DI.US.S_ITS ---
PROCEDURE: US OB >= 14 WEEKS FETUS INDICATIONS: ANATOMY OUTSIDE/PRIOR DATING DATA: Last menstrual period (LMP): 05/10/2022 LMP-based estimated date of delivery (ROSELIA): 02/14/2023 First dating scan (date and location): 07/19/2022 Estimated date of delivery (ROSELIA) from first dating scan: 02/14/2023 The calculations are made using the working ROSELIA of 02/14/2023. TECHNIQUE: Real-time scanning was performed of the fetus, with image documentation and biometric measurements. Endovaginal scanning: Not indicated COMPARISON: [facility], , OB >= 14 WEEKS FETUS, 08/16/2022, 10:10. FINDINGS: General: A single living intrauterine gestation is present. Presentation: Variable Placenta: Placental position is posterior, without previa. Amniotic fluid index: 18.0 cm, normal range is 5-24 cm. Single deepest vertical pocket is 4.7 cm. heart rate: 132 beats per minute. Maternal cervical canal: 3.6 cm long. Normal lower limit is 2.5 cm. biometrics: Biparietal diameter: 5.1 cm, 21 weeks, 4 days. Head circumference: 18.8 cm, 21 weeks, 1 day. Abdominal circumference: 17.2 cm, 22 weeks, 1 day. Femur length: 3.7 cm, 21 weeks, 5 days Clinically estimated gestational age: 22 weeks, 0 day. Composite gestational age from present scan: 21 weeks, 5 days. Estimated weight and percentile: 454 g, 35%. Anatomic survey: Neuro: Ventricles are non-dilated at less than 10 mm. Cisterna magna is normal at 3-11 mm. Cerebellum is normal in size and morphology. Nuchal skin fold: Normal at less than 6 mm between 14-21 weeks gestational age. Face: nose is not well seen. Rest of the facial profile is normal. Spine: No evidence for spina bifida. Heart: 4-chambered heart is present, with normal ventricular outflow tracts. Diaphragm: Diaphragm is intact. Stomach: Left-sided stomach is present. Kidneys: No hydronephrosis. Normal is less than 5 mm in 2nd trimester, less than 7 mm in 3rd trimester. Cord: 3-vessel cord has orthotopic insertion. Bladder: Normal in size. Extremities: All 4 extremities identified. Incidentally noted of veol-hd-[id number] right-sided hydronephrosis and increased vascularity in bilateral kidneys. Gallbladder is visualized and is within normal limits. IMPRESSION: 1. Single live intrauterine gestation with fetus in variable presentation. heart rate is or 132 beats per minute. Normal amount of amniotic fluid. Normal growth. Estimated weight is at 35%. 2. nose is not well seen on this study. Rest of the anatomic survey is within normal limits. 3. Incidentally noted of increased vascularity in bilateral kidneys consistent with clinical history of UTI. Kpjp-vo-mdnvrthq right-sided hydronephrosis. We strive to produce accurate, complete, and clear reports of imaging services. To assist us in improving patient care, this report was composed using standard report templates and voice recognition software. Therefore, it may contain abnormal punctuation, insertions and/or omissions. Occasional wrong-word or sound-alike substitutions may occur. Though we review the report and make efforts to correct it, we do recommend that the report be read carefully in proper context to recognize any text inaccuracies. Dictated by: Everardo Hill M.D. on 10/11/2022 at 10:11 Approved by: Everarod Hill M.D. on 10/11/2022 at 10:17
== END ==
PROVIDERS: PCP Student in an Organized Health Care Education/Training Program; Referring Provider Obstetrics & Gynecology; Visit Provider Obstetrics & Gynecology
DX: Z34.82 Encounter for supervision of other normal pregnancy, second trimester (principal); Z3A.21 21 weeks gestation of pregnancy
CPT/HCPCS: 76811

== ENCOUNTER 2022-12-05 11:00 | Outpatient (CLI) | payer OTHER, SELFPAY | END 2022-12-05 11:25 | disposition home or self-care (01) | LOC: OB 12-08 11:04 | PROVIDERS: PCP Student in an Organized Health Care Education/Training Program; Referring Provider Obstetrics & Gynecology; Visit Provider Obstetrics & Gynecology | DX: O36.8130 Decreased fetal movements, third trimester, not applicable or unspecified (principal); O42.913 Preterm premature rupture of membranes, unspecified as to length of time between rupture and onset of labor, third trimester; Z3A.30 30 weeks gestation of pregnancy | CPT/HCPCS: 59025; 84112; G0378; G0379 ==

== ENCOUNTER → 2023-01-18 22:41 | Outpatient (ROUT) | payer OTHER, SELFPAY ==
[2023-01-19 17:22] LABS: Strep Grp B PCR NEG for Grp B Strep
== END ==
PROVIDERS: PCP Student in an Organized Health Care Education/Training Program; Visit Provider Obstetrics & Gynecology
DX: Z34.83 Encounter for supervision of other normal pregnancy, third trimester (principal); Z3A.36 36 weeks gestation of pregnancy
CPT/HCPCS: 87653

== ENCOUNTER → 2023-01-23 14:09 | Outpatient (CLI) | payer OTHER, SELFPAY ==
[2023-01-23 19:10] LABS: UR Morphine/Opiate cutoff 300 Negative (Negative); Ur Creatinine Normal (Normal); Ur Specific Gravity Normal (Normal); Urine Amphetamines Negative (Negative); Urine Barbiturates Negative (Negative); Urine Benzodiazepines Negative (Negative); Urine Cocaine Negative (Negative); Urine MDMA Negative (Negative); Urine Methadone Negative (Negative); Urine Methamphetamines Negative (Negative); Urine Oxycodone Negative (Negative); Urine Phencyclidine Negative (Negative); Urine Tetrahydrocannabinol Negative (Negative); Urine Tricyclic Antidepressant Negative (Negative); Urine pH Normal (Normal)
== END ==
PROVIDERS: PCP Student in an Organized Health Care Education/Training Program; Visit Provider Obstetrics & Gynecology
DX: Z34.83 Encounter for supervision of other normal pregnancy, third trimester (principal); Z3A.36 36 weeks gestation of pregnancy
CPT/HCPCS: 80305

== ENCOUNTER 2023-01-26 11:33 | Outpatient (CLI) | payer OTHER, SELFPAY | END 2023-01-26 12:47 | disposition home or self-care (01) | LOC: LABOR 12:11 → OB 01-30 06:52 | PROVIDERS: PCP Student in an Organized Health Care Education/Training Program; Referring Provider Obstetrics & Gynecology; Visit Provider Obstetrics & Gynecology | DX: Z03.71 Encounter for suspected problem with amniotic cavity and membrane ruled out (principal); O47.1 False labor at or after 37 completed weeks of gestation; Z3A.37 37 weeks gestation of pregnancy | CPT/HCPCS: 59025; 84112; G0378; G0379 ==

== ENCOUNTER 2023-01-26 13:43 | Outpatient (CLI) | payer OTHER, SELFPAY | END 2023-01-26 14:45 | disposition home or self-care (01) | LOC: LABOR 14:23 → OB 01-30 06:52 | PROVIDERS: PCP Student in an Organized Health Care Education/Training Program; Referring Provider Obstetrics & Gynecology; Visit Provider Obstetrics & Gynecology | DX: O47.1 False labor at or after 37 completed weeks of gestation (principal); Z3A.37 37 weeks gestation of pregnancy | CPT/HCPCS: 59025; G0378; G0379 ==

== ENCOUNTER → 2023-01-30 10:34 | Outpatient (CLI) | payer OTHER, SELFPAY ==
[2023-01-30 11:09] LABS: UR Morphine/Opiate cutoff 300 Negative (Negative); Urine Amphetamines Negative (Negative); Urine Barbiturates Negative (Negative); Urine Benzodiazepines Negative (Negative); Urine Cocaine Negative (Negative); Urine MDMA Negative (Negative); Urine Methadone Negative (Negative); Urine Methamphetamines Negative (Negative); Urine Oxycodone Negative (Negative); Urine Phencyclidine Negative (Negative); Urine Tetrahydrocannabinol Negative (Negative); Urine Tricyclic Antidepressant Negative (Negative)
== END ==
PROVIDERS: PCP Student in an Organized Health Care Education/Training Program; Visit Provider Obstetrics & Gynecology
DX: Z33.3 Pregnant state, gestational carrier (principal)
CPT/HCPCS: 80305

== ENCOUNTER 2023-02-04 19:13 | Inpatient (IN) | payer OTHER, MEDICAID, SELFPAY ==
[2023-02-04 21:10] LABS: Add Manual Diff / Slide Review NO; Basophils Absolute Auto 100 /uL (0-100); Basophils Percent Auto 0.7 % (0-2); Eosinophils Absolute Auto 200 /uL (0-450); Eosinophils Percent Auto 1.5 % (2-4); Hematocrit 33.2 % (36-46); Hemoglobin 11.2 g/dL (12.0-16.0); Lymphocytes Absolute Auto 3200 /uL (1100-4500); Lymphocytes Percent Auto 23.1 % (25-40); Mean Corpuscular HGB Conc 33.6 % (30-36); Mean Corpuscular Hemoglobin 28.4 PG (26-34); Mean Corpuscular Volume 84.4 fL (80-100); Monocytes Absolute Auto 700 /uL (0-900); Monocytes Percent Auto 4.9 % (3-14); Neutrophils Absolute Auto 9600 /uL (1500-7000); Neutrophils Percent Auto 69.8 % (50-75); Platelet Count 296 X10^3/uL (150-400); Red Blood Cell Count 3.93 X10^6/uL (4.0-5.2); Red Cell Distribution Width 12.9 % (11.6-14.8); White Blood Cell Count 13.8 X10^3/uL (4.5-11.0)
--- NOTE | 2023-02-05 00:30 | P.HPOB_ITS ---
OB HPI Date/Time Date of admission: 02/04/23 Date Patient Seen: 02/04/23 Time Patient Seen: 23:55 History of Present Condition Chief complaint: IUP, 38+5 wks, SROM, GBS Negative : 8 Para: 3 Estimated Date of Delivery: 02/14/23 Estimated Gestational Age (weeks): 38+4 Narrative: Remigio Dela Cruz is a 22 year old at 38+ 4 weeks gestational age presenting with spontaneous rupture membranes. Patient has experienced 3 spontaneous vaginal births previously. This is a surrogate for a couple known to the patient. There was apparently some question as to whether not the patient's estranged may be the father of the baby but had issue will be resolved post delivery. Patient's course is largely been uneventful with solid early dating and appropriate milestones throughout. History of Present care: good care Dating criteria: LMP confirmed by 1st trimester US Ultrasounds: normal 1st trimester US and normal mid trimester US Obstetrical complications: none Medical complications: none Preadmission Labs Blood type: O (+) positive -: Antibody screen: negative, GBS status: negative, HBsAG: negative, HIV: negative and RPR/VDLR: negative -: Chlamydia screen: not detected -: Rubella: not immune and Varicella: immune HCT: 33.2 HCAB: reactive PAP: Normal Quad screen: Normal Cell-free DNA: Low risk female 1 hr GTT: 138 Prior (ies) History: x 3 Evaluation Evaluation Baseline heart rate: 140 Variability: Moderate (11-25) monitor accelerations: Present Contraction Frequency (minutes): 4 Uterine Contraction Intensity: Moderate Category of Tracing: Reactive Status: Category l Dilation (cm): 6 Effacement (%): 80 Dilation: >/=5 cm Effacement: >/=80% station: -1 Position of cervix: mid Consistency: soft Shaw score: 11 Non-invasive Membranes Rupture Test: positive [facility] Medical History (Updated 12/31/22 @ 14:26 by Mica Anderson MD) ADHD Premature uterine contractions causing threatened premature labor History of oligohydramnios Smoker History of multiple miscarriages Fatty liver disease, nonalcoholic (~12/2019) Chronic nasal congestion (~2011) Ovarian cyst (~2018) PTSD (post-traumatic stress disorder) Depression (~2012) Anxiety (~2012) Post depression (~2016) (spontaneous vaginal delivery) (~12/13/19) (spontaneous vaginal delivery) (~12/12/16) Gonorrhea (~2018) Chlamydia (~2014) Migraine (~08/2020) Surgical History [place] teeth extracted (~2015) Family History (Updated 07/12/22 @ 13:12 by Елена Fountain RN) Father Drug addiction in remission Mother Fibromyalgia Diabetes mellitus Type 2 diabetes mellitus Degenerative disc disease Anxiety Depression Drug addiction in remission Grandfather No problems noted. Grandmother Skin cancer Cancer Rheumatoid arthritis Grandfather Alcohol addiction Grandmother History of heart artery stent Hypertension Sister PCOS (polycystic ovarian syndrome) Ovarian tumor Sister Addiction Bipolar disorder Sister Anxiety Depression Tourette's syndrome ADHD Family/Other Alcohol addiction Addiction Anxiety Depression Family/Other Fibromyalgia Rheumatoid arthritis Social History marital status: number of children: 3 household members: spouse and children lives independently: Yes caregiver/support person: Yes housing: apartment pets and animals: No education level: college ([employer]) occupational status: employed (fast food) current occupational exposures/hazards: Yes special raymond needs: No travel history: recent (domestic only) seatbelt use: always helmet use: No (not reliably, counseled on this) water heater temp set < 120 deg: Yes working smoke detector in home: Yes fire extinguisher in home: Yes carbon monox detector in home: Yes firearms in home: No do you feel safe at home: Yes Smoking Status: Former smoker Tobacco: How many years used: 5 second hand exposure: Yes alcohol intake: former (rarely when not ) substance use type: does not use and marijuana (counseled not to use while /) during the past year weight has: other (youngest ~18 months old, back to pre- baby wt) well-balanced diet: daily or most days (much better when than otherwise) daily servings fruits/ve or more times/day caffeine: Yes (occasional soft drink) Type(s) of exercise: walking and weight lifting frequency: 3-4 times per week additional social history: Pt is currently from her , planning on finalizing the divorce soon. While she is the biological mother of this baby, she considers this to be a surrogate as she is carrying for the biological father and his , who will adopt the baby at . She has never done this before and is interested in anything we can help her with about making the process run smoothly. Meds Home Medications and Allergies Allergies Allergy/AdvReac Type Severity Reaction Status Date / Time No Known Drug Allergies Allergy Verified 01/30/23 09:22 OB Exam Vital signs Blood Pressure: 88/51 Pulse Rate: 111 Temperature: 97.2 F HENMT Head: normal to inspection, normocephalic and atraumatic Eyes General: appearance normal, both eyes and all related structures Resp Effort & Inspection: normal respiratory effort and able to speak in complete sentences Auscultation: clear to auscultation bilaterally Cardio Rate: regular rate Rhythm: regular rhythm Heart Sounds: S1 normal, S2 normal and no murmurs Extremities Lower extremity: Yes normal to inspection GI Inspection: normal to inspection Palpation: Yes soft and Yes no hepatosplenomegaly Uterus Location (Fundal Height): 37 Estimated Weight (lbs): 7 Amniotic Fluid: clear Objective Labs 02/04/23 20:20 Labs: Laboratory Results - last 24 hr 02/04/23 20:20 WBC 13.8 H RBC 3.93 L Hgb 11.2 L Hct 33.2 L MCV 84.4 MCH 28.4 MCHC 33.6 RDW 12.9 Plt Count 296 Neut % (Auto) 69.8 Lymph % (Auto) 23.1 L [place] % (Auto) 4.9 Eos % (Auto) 1.5 L Baso % (Auto) 0.7 Neut # (Auto) 9600 H Lymph # (Auto) 3200 [place] # (Auto) 700 Eos # (Auto) 200 Baso # (Auto) 100 Blood Type O Positive Antibody Screen Negative Assessment and Plan Assessment and Plan Assessment and Plan narrative: ASSESSMENT 1. Intrauterine , 38+ 5 weeks gestational age 2. SROM 3. GBS negative status 4. Surrogate PLAN 1. Admit for labor and delivery 2. See admission orders
[2023-02-05] MEDS: LACTATED RINGERS 1,000 ML 100 ML IV (03:41)
[2023-02-05] MEDS: OXYTOCIN PREMIX 30 UNIT/500 ML PLAST..BAG IV ×2 (04:15→14:11)
[2023-02-05] MEDS: FENT 2MCG/ML BUPIV 0.125% EPI 200 MCG/100 ML PLAST..BAG 5 MCG EPIDURAL (07:30)
--- NOTE | 2023-02-05 07:48 | PM.AN.REGBLK ---
Regional Block Pre-procedure Procedure: Continuous Lumbar Epidural for L&D Attending OB provider: Qamar Rosales PMH/ROS narrative: 27yo female 38w5d , non-alcoholic fatty liver disease, multiple miscarriages, ADHD, anxiety, depression, PTSD, migraine, gonorrhea, chlamydia, ovarian cyst. Hx: No personal or family history of anesthesia problems. ASA Class: II Labs: Hct 33.2 % (36-46) L 02/04/23 20:20 Plt Count 296 X10^3/uL (150-400) 02/04/23 20:20 Medications: Current Medications Generic Name Dose Route Start Last Admin Trade Name Freq PRN Reason Stop Dose Admin Calcium Carbonate 1,000 mg 02/04/23 20:26 Calcium Carbonate 500 Mg Tab PO Q4HR PRN Dyspepsia Carboprost Tromethamine 250 mcg 02/04/23 20:26 Carboprost 250 Mcg/Ml Ampul IM Q90M PRN Bleeding Diphenhydramine HCl 25 mg 02/05/23 07:42 Diphenhydramine 50 Mg/Ml Vial IV Q10M PRN Pruritis Ephedrine Sulfate 5 mg 02/05/23 07:42 Ephedrine 50 Mg/Ml Vial IV Q5M PRN Blood pressure decrease more than 20% of baseline. Fentanyl 100 mcg 02/04/23 20:26 Fentanyl 100 Mcg/2 Ml Inj IV Q1H PRN Pain, Severe (7-10) Oxytocin/Lactated Ringer's 30 unit in 500 mls @ 200 mls/hr 02/04/23 20:26 Oxytocin Premix IV CONT PRN Bleeding Protocol Tranexamic Acid 1,000 mg/ 100 mls @ 200 mls/hr 02/04/23 20:26 Sodium Chloride IV NOW PRN Bleeding Lactated Ringer's 1,000 mls @ 100 mls/hr 02/04/23 20:30 02/05/23 03:41 Lactated Ringers IV 100 mls/hr CONT FRANDY Administration Oxytocin/Lactated Ringer's 30 unit in 500 mls @ 2 mls/hr 02/04/23 23:15 02/05/23 04:15 Oxytocin Premix IV 2 milliunit/min TITRATE FRANDY 2 mls/hr Administration Protocol 2 MILLIUNIT/MIN FENT 2MCG/ML BUPIV 0.125% EPI 200 mcg in 100 mls @ 5 mls/hr 02/05/23 07:45 Fentanyl/Bupiv/Ns 2mcg/Ml - 0.125% EPIDURAL CONT FRANDY Lidocaine HCl 20 ml 02/04/23 20:26 Lidocaine 1% 20 Ml INJ INTRA-OP PRN Post Delivery Methylergonovine Maleate 0.2 mg 02/04/23 20:26 Methylergonovine 0.2 Mg Tablet PO Q6HR PRN Heavy Bleeding Methylergonovine Maleate 0.2 mg 02/04/23 20:26 Methylergonovine 0.2 Mg/Ml Vial IM NOW PRN Bleeding Misoprostol 800 mcg 02/04/23 20:26 Misoprostol 200 Mcg Tablet LA NOW PRN Bleeding Misoprostol 400 mcg 02/04/23 20:26 Misoprostol 200 Mcg Tablet SL NOW PRN Bleeding Nalbuphine HCl 2.5 mg 02/05/23 07:42 Nalbuphine 20 Mg/Ml Ampul IV Q10M PRN Pruritis Naloxone HCl 0.2 mg 02/04/23 20:26 Naloxone 0.4 Mg/Ml Vial IV Q2MIN PRN Opiate Reversal Ondansetron HCl 4 mg 02/04/23 20:26 Ondansetron 4 Mg/2 Ml Inj IV Q4HR PRN Nausea And Vomiting Oxytocin 10 unit 02/04/23 20:26 Oxytocin 10 Unit/Ml Vial IM NOW PRN Bleeding Allergies: Allergies Allergy/AdvReac Type Severity Reaction Status Date / Time No Known Drug Allergies Allergy Verified 01/30/23 09:22 Procedure Insertion date: 02/05/23 Insertion time: 06:50 Prep/Local: betadine x3 and 1% lidocaine Interspace: L3-L4 Patient position: sitting Needle: 18 gauge [place] Loss of resistance with: saline (+ air) CINTIA at (cm): 8 Catheter placed at SKIN (cm): 14 Catheter in SPACE (cm): 6 Insertion: No CSF, No Blood, No Paresthesia with insertion, No Paresthesia with injection and No Test dose reaction Initial Medications TEST DOSE time: 06:52 TEST DOSE: 1.5% lidocaine with epinephrine 1:200k (mL): 3 BOLUS DOSE time: 06:54 BOLUS DOSE (mL): 7 BOLUS DOSE med: other (2% Lidocaine) Infusion INFUSION: 0.125% bupivacaine and with fentanyl 2 mcg/mL Initial rate (mL/hr): 5 Subsequent interventions: 0734: New rate at 3mL/hr, PCEA dose 3mL, 100mcg phenylephrine IV bolus for hypotension treatment. 1010: Bolus dose with 0.5% Bupivacaine 2mL mixed with 2% Lidocaine 2mL, continuous rate increased to 5mL/hr and PCEA dose to 5mL/hr, 20min lockout, with 20mL 1hr lockout. Patient being monitored for hypotension. 1200: BP 88/49, 100mcg phenylephrine bolus, BP 130/79. Bolus 0.5% Bupivacaine 2mL with 2% Lidocaine 3mL for delivery. Post-procedure Anesthesia time START: 06:25 Anesthesia time END: 14:46 Post-procedure Anesthesia Assessment: No CV function: HR/BP stable, No Resp function: RR/sat/airway adequate, No Post-op hydration adequate, No Pain control adequate, No Nausea & vomiting absent, No Temperature > 36 C, No Mental status appropriate and No Anesthesia complications
[2023-02-05] MEDS: ACETAMINOPHEN 325 MG TABLET 650 MG PO ×3 (09:31→18:59)
[2023-02-05 10:43] VITALS: BP 88/51; PULSE 111; TEMP 36.2
--- NOTE | 2023-02-05 10:56 | PM.PROC.1 ---
Procedures Date/Time Date of procedure: 02/05/23 Time of procedure: 10:45 General Procedure description: IUPC PLACEMENT PROCEDURE NOTE Sterile vaginal examination and the cervix 90+% effaced/ 6 cm/-1 station was noted. IUPC placed at 2:00 with no resistance. Clear fluid noted. Excellent waveform obtained. Adjustments to Pitocin dosage/management plan based on results of the IUPC tracing. Complications: none
[2023-02-05] MEDS: CALCIUM CARBONATE 500 MG TAB 1000 MG PO (14:00)
--- NOTE | 2023-02-05 15:06 | PM.OBPRVD ---
Events: Labor < 37 wks and Oligohydramnios Labor & Delivery Delivery date: 02/05/23 Intrapartal Events: None Cervical ripening method: none Induction method: none Delivery augmentation: pitocin Delivery monitor: external FHT and external uterine Route of delivery: Episiotomy description: None L&D Laceration Description: None Estimated blood loss (mL): 150 Anesthesia Type: Epidural Complications: None Narrative: Following a very brief 2nd stage, the patient delivered spontaneously over an intact perineum, a viable and vigorous female infant. No cord entanglement or shoulder dystocia was noted at the time of delivery. Skin to skin contact was initiated immediately and delayed cord clamping until pulsation ceased was performed. Once the umbilical cord was doubly clamped and cut, a specimen of cord blood was obtained for routine studies. The placenta was easily delivered with gentle cord traction and suprapubic countertraction. Once placenta was delivered, intravenous Pitocin was initiated immediately with prompt control of post delivery bleeding. Inspection of the placenta revealed an intact placenta with a central insertion and a three-vessel umbilical cord. Inspection of the perineum revealed no abrasions or lacerations. Instrument and sponge count correct at the completion of the procedure which was well tolerated by both mother and baby. Baby 1: Infant gender: Female Presentation: vertex Position: Left Occiput Anterior Placenta delivery description: Spontaneous Cord Vessel Description: 3 Vessels score (1 min): 9 score (5 min): 9 weight: 6 lb 3.719 oz Plan for aftercare: Routine care
[2023-02-05] MEDS: IBUPROFEN 600 MG TABLET PO (18:59)
[2023-02-06] MEDS: ACETAMINOPHEN 325 MG TABLET 650 MG PO ×2 (00:59→09:49)
[2023-02-06] MEDS: IBUPROFEN 600 MG TABLET PO ×2 (00:59→09:49)
[2023-02-06] MEDS: ONDANSETRON 4 MG ODT SL (02:33)
[2023-02-06 05:26] LABS: Add Manual Diff / Slide Review NO; Basophils Absolute Auto 100 /uL (0-100); Basophils Percent Auto 0.4 % (0-2); Eosinophils Absolute Auto 200 /uL (0-450); Eosinophils Percent Auto 1.4 % (2-4); Hematocrit 32.3 % (36-46); Hemoglobin 10.8 g/dL (12.0-16.0); Lymphocytes Absolute Auto 2800 /uL (1100-4500); Lymphocytes Percent Auto 17.8 % (25-40); Mean Corpuscular HGB Conc 33.5 % (30-36); Mean Corpuscular Hemoglobin 28.4 PG (26-34); Mean Corpuscular Volume 84.7 fL (80-100); Monocytes Absolute Auto 1200 /uL (0-900); Monocytes Percent Auto 7.5 % (3-14); Neutrophils Absolute Auto 11500 /uL (1500-7000); Neutrophils Percent Auto 72.9 % (50-75); Platelet Count 244 X10^3/uL (150-400); Red Blood Cell Count 3.81 X10^6/uL (4.0-5.2); Red Cell Distribution Width 12.9 % (11.6-14.8); White Blood Cell Count 15.8 X10^3/uL (4.5-11.0)
[2023-02-06] MEDS: DOCUSATE 100 MG CAPSULE PO (09:50)
[2023-02-06 16:16] VITALS: BP 117/79; PULSE 93; RESP 16; TEMP 36.4
--- NOTE | 2023-02-10 14:26 | P.DS_ITS ---
Discharge Providers Provider Date of admission: 02/04/23 19:13 Discharge Date: 02/06/23 Primary care physician: Lynn Green MD Consults: 02/04/23 20:26 Consult to Anesthesiology Urgent Comment: Consulting Provider: Anesthesiologist Reason for consultation: Epidural 02/06/23 15:00 Consult to Top Lift And Automatic Window Repairer Routine Comment: Discharge provider: Mica Anderson MD Summary Hospital Course Date Patient Seen: 02/06/23 Time Patient Seen: 07:30 Diagnoses: 38-5/7 weeks gestation Surrogate gestation Spontaneous rupture of membranes Epidural analgesia Spontaneous vaginal delivery Hospital Course: Patient is a 22-year-old 8 para 4 who presented on February 04, 2023 with spontaneous rupture of membranes at 38-,5/7 weeks gestation on the morning of February 05, 2023 she had an IUPC placed to assess adequacy of contractions. She had a spontaneous vaginal delivery later that day without complication. Her postoperative course was unremarkable and she was discharged home on February 06, 2023. Peripartum Data Infant Delivery Method: Natural Vaginal Laceration Description: None Episiotomy description: None Procedures: Intrauterine pressure catheter placement Spontaneous vaginal delivery Epidural analgesia complications: none [place] 1: Gender: Female Disposition of : home Status at Discharge Cognitive/behavioral status at discharge: oriented Functional status at discharge: independent ambulation Overall status at discharge: patient is progressing back to baseline Time Spent with Patient Time attestation: Total time spent providing and/or coordinating discharge services: Time spent: Less than 30 minutes Objective Labs 02/06/23 05:19 Exam Narrative Exam Narrative: Generally: Patient is sitting up in bed, no acute distress Fundus: Firm at U -1 Extremities: No edema, negative Homans Discharge Plan Discharge Plan Patient Disposition: Home Provider Discharge Comment: Please review the written instructions you received when you were discharged from the hospital. Your follow-up appointment with Dr. Anderson will be scheduled for 6 weeks after your delivery we look forward to seeing you then. If however in the meanwhile you have any questions, concerns, or issues, please contact the office either by phone at [phone], or via the patient portal. Push oral fluid Ibuprofen 600 mg every 6 hours as needed for cramping or pain Tylenol 650 mg every 6 hours as needed Discharge orders & Medications Follow up/Referrals: Mica Anderson MD [Physician] - (March 20 at 9am Sunday with Dr. Anderson) Discharge Health Status Multidrug resistant organism: No MDRO Diet/Activity/Treatments Diet: Regular Activity: As tolerated Other treatments: Fjsb-hoj-vxdxcal Tylenol and/or ibuprofen may be used for pain relief. Pxrb-axu-wayhinv stool softeners and/or MiraLax may be used as needed for constipation. Skin/Wound/Dressing Care Report to your healthcare provider any signs of infection, such as:: chills, fever, increased pain, unusual drainage and unusual redness Dressing: N/A Visit Report/Discharge Packet Instructions: DI for Labor and Delivery, Vaginal , DI for and Nipple Soreness Stand Alone Forms: Discharge: Care Discharge Data Primary Care Provider: Lynn Green
== END 2023-02-06 15:48 | disposition home or self-care (01) | DRG 807 ==
PROVIDERS: Admitting Provider Obstetrics & Gynecology; PCP Student in an Organized Health Care Education/Training Program; Referring Provider Obstetrics & Gynecology; Visit Provider Obstetrics & Gynecology
DX: O42.02 Full-term premature rupture of membranes, onset of labor within 24 hours of rupture (principal); Z37.0 Single live birth; Z3A.38 38 weeks gestation of pregnancy
CPT/HCPCS: 36415; 59050; 59409; 85025; 86850; 86900; 86901; J1200; J2590

== ENCOUNTER → 2023-04-06 08:13 | Outpatient (CLI) | payer OTHER, MEDICAID, SELFPAY ==
--- NOTE | 2023-04-06 08:15 | DI.US.S_ITS ---
LIMITED ULTRASOUND OF LEFT BREAST AND AXILLA: 04/06/2023 CLINICAL: Palpable left breast lump. No prior exams were available for comparison. Color flow ultrasound of the left breast axilla was performed on the areas of interest. Aguirre scale images of the real-time examination were reviewed. IMPRESSION: NEGATIVE There is no sonographic evidence of malignancy. There is no sonographic abnormality seen in the left breast to correspond with the palpable abnormality, however, clinical followup is recommended. This exam was interpreted at Station ID: [id number]. Electronically Signed By: Caro Mathur M.D. lk/:04/06/2023 08:51:41 letter sent: Clinical Evaluation Ultrasound BI-RADS: 1 Negative
== END ==
PROVIDERS: PCP Student in an Organized Health Care Education/Training Program; Referring Provider Obstetrics & Gynecology; Visit Provider Obstetrics & Gynecology
DX: N63.20 Unspecified lump in the left breast, unspecified quadrant (principal)
CPT/HCPCS: 76642

== ENCOUNTER 2023-04-27 12:22 | Day surgery (SDC) | payer BC, OTHER, MEDICAID, SELFPAY ==
[2023-04-27] VITALS (10 sets, daily range): BP systolic 88–123; BP diastolic 56–77; PULSE 60–81; RESP 11–18; TEMP 36.2–36.6; O2SAT 96–100; BMI 38.4
[2023-04-27] MEDS: LACTATED RINGERS 1,000 ML 42 ML IV ×2 (13:21→17:20)
--- NOTE | 2023-04-27 13:52 | P.HPOB_ITS ---
History of Present Illness History of Present Illness Narrative: Remigio Dela Cruz is a 22 year old female 8 para 4 who presents for vulvar skin tag removals, Pap smear, and bilateral labial reduction. She is having this done due to bilateral labial hypertrophy, multiple vulvar skin tags, and need for Pap smear. [facility] Medical History (Updated 03/20/23 @ 09:36 by Mica Anderson MD) ADHD Premature uterine contractions causing threatened premature labor History of oligohydramnios Smoker History of multiple miscarriages Fatty liver disease, nonalcoholic (~12/2019) Chronic nasal congestion (~2011) Ovarian cyst (~2018) PTSD (post-traumatic stress disorder) Depression (~2012) Anxiety (~2012) Post depression (~2016) (spontaneous vaginal delivery) (~12/13/19) (spontaneous vaginal delivery) (~12/12/16) Gonorrhea (~2018) Chlamydia (~2014) Migraine (~08/2020) Surgical History [place] teeth extracted (~2015) Family History (Updated 07/12/22 @ 13:12 by Елена Fountain RN) Father Drug addiction in remission Mother Fibromyalgia Diabetes mellitus Type 2 diabetes mellitus Degenerative disc disease Anxiety Depression Drug addiction in remission Grandfather No problems noted. Grandmother Skin cancer Cancer Rheumatoid arthritis Grandfather Alcohol addiction Grandmother History of heart artery stent Hypertension Sister PCOS (polycystic ovarian syndrome) Ovarian tumor Sister Addiction Bipolar disorder Sister Anxiety Depression Tourette's syndrome ADHD Family/Other Alcohol addiction Addiction Anxiety Depression Family/Other Fibromyalgia Rheumatoid arthritis Social History marital status: number of children: 3 household members: children lives independently: Yes caregiver/support person: Yes housing: apartment pets and animals: No education level: college (Some College) occupational status: employed (fast food) current occupational exposures/hazards: Yes special raymond needs: No travel history: recent (domestic only) seatbelt use: always helmet use: No (not reliably, counseled on this) water heater temp set < 120 deg: Yes working smoke detector in home: Yes fire extinguisher in home: Yes carbon monox detector in home: Yes firearms in home: No do you feel safe at home: Yes Smoking Status: Current every day smoker Tobacco: How many years used: 5 second hand exposure: Yes alcohol intake: former substance use type: does not use and marijuana (counseled not to use while /) during the past year weight has: other (youngest ~18 months old, back to pre- baby wt) well-balanced diet: daily or most days (much better when than otherwise) daily servings fruits/ve or more times/day caffeine: Yes (occasional soft drink) Type(s) of exercise: walking and weight lifting frequency: 3-4 times per week additional social history: Pt is currently from her , planning on finalizing the divorce soon. While she is the biological mother of this baby, she considers this to be a surrogate as she is carrying for the biological father and his , who will adopt the baby at . She has never done this before and is interested in anything we can help her with about making the process run smoothly. Meds Home Medications and Allergies Home Medications Medication Instructions Recorded Confirmed Type lisdexamfetamine 30 mg capsule 30 mg PO QAM 04/27/23 04/27/23 History (Yessenia) Allergies Allergy/AdvReac Type Severity Reaction Status Date / Time No Known Drug Allergies Allergy Verified 04/27/23 13:23 Exam Vital Signs (past 8 hours): - 04/27/23 13:13 Temperature 98 F Pulse Rate 81 Respiratory Rate 18 Blood Pressure 123/75 Pulse Oximetry 100 Oxygen Delivery Method Room Air Oxygen Delivery Method Room Air Narrative Exam Narrative: HEENT: No thyromegaly, no anterior cervical or supraclavicular lymphadenopathy. Lungs:Clear to auscultation bilaterally, no wheezes. Cardiovascular: Regular rate and rhythm, no murmurs, rubs, or gallops. Abdomen: No scars. No hepatosplenomegaly. No masses palpable. External genitalia: Multiple vulvar skin tags ranging in size from 0.4 cm to 0.7 cm. Labial hypertrophy. Right side measuring 4.5 cm, left side measuring 5 cm. Vagina: Normal Cervix: Normal Bimanual exam: 6 Week size anteverted uterus. Mobile. Extremities: No edema Assessment & Plan Assessment & Plan narrative: Assessment: 22-year-old 8 para 4 with bilateral labial hypertrophy, multiple vulvar skin tags, and in need of Pap smear Plan Thin prep Pap, bilateral labial reduction, vulvar skin tag removals. The risks, benefits, and alternatives to the procedure were explained to the patient. The risks including bleeding and infection. She understands these risks and agrees to proceed. A full par Q was held and consent form was signed. Time Spent With Patient Time with patient: less than 30 minutes
--- NOTE | 2023-04-27 13:55 | PM.PREOP ---
Pre-operative Note Interval Note History & Physical reviewed/Exam performed by Physician: Yes Changes to H&P: No H&P completed within 30 days and has changed as indicated here:: 04/27/23
[2023-04-27] MEDS: CEFAZOLIN 2 GM/100 ML PREMIX 100 ML IV (15:20)
--- NOTE | 2023-04-27 15:35 | SUR.OPER ---
Lithotomy on padded OR bed, head on pillow, arms secured on padded arm boards at <90 degrees abduction. Legs secured in padded yellow fins stirrups.
[2023-04-27] MEDS: BUPIVACAINE 0.5% (PF) 30 ML, EPINEPHrine 0.15 MG INJ (15:41)
--- NOTE | 2023-04-27 16:11 | PM.GYNOP.1 ---
Operative Date/Time/Diagnoses Date of procedure: 04/27/23 Time of procedure: 16:11 Pre-op diagnosis: Hypertrophic labia minora Vulvar skin tags Due for a Pap smear Post-op diagnosis: same Procedure & Clinicians Procedure: Procedures Operation Date: 04/27/23 12:15 Actual Procedure Side Surgeon p Bilateral Labial Reduction, removal of five vulva skin tag, PAP under anesthesia Mica Anderson MD Indications: 22 year old with hypertrophic labia minora, vulvar skin tags, and is due for a Pap smears Surgeon: Mica Anderson Anesthesia Type: General (LMA) and Local Operative Notes Findings: 7 vulvar skin tags ranging from 0.3cm to 0.6cm Hypertrophic labia minora, left pulls to 6cm, right pulls to 4.5cm Normal cervix Closure Type: primary Specimen(s): other (Pap) Estimated blood loss (mL): 10 Blood products transfused: none Procedure in detail: After informe consent was obtained, the patient was taken to the operating room where she was placed in the dorsal supine position. After LMA general anesthesia was achieved, she was placed in the dorsolithotomy position and prepped and draped in the usual sterile fashion. A timeout was performed. A bivalve speculum was placed into the vagina. A thin prep Pap of the cervix was obtained. Using 0.5% Marcaine with epinephrine, each of the skin tags was undermined using local. Local was placed also in the labia minora. Using the Bovie and a pickup, the 7 skin tags were removed using cautery at the base. Hemostasis was achieved. The area on the labia minora to be excised was marked with a surgical marker. Using the Metzenbaum scissors the excess labia minora were excised. Using 3-0 chromic, the edges were brought together with simple interrupted sutures. Hemostasis was achieved. Sponge, lap, and instrument counts were correct x2. The patient tolerated the procedure well, and was taken to PACU in stable condition. Complications: none Post-operative Condition: stable Disposition: PACU Plan for aftercare: Home after recovery
[2023-04-27] MEDS: HYDROMORPHONE 1 MG INJ IV (16:22)
[2023-04-27] MEDS: OXYCODONE IR 5 MG TABLET PO ×2 (16:48→17:03)
[2023-04-27] MEDS: ONDANSETRON 4 MG/2 ML INJ IV (17:04)
--- NOTE | 2023-04-27 18:25 | SUR.PHASEII ---
Pt with some bleeding upon first void post surgery. Pic taken and sent to Dr Anderson to make sure to go ahead with dc. States to place pad with tighter compression underwear and okay to go ahead with discharge. Pt AOx4 and VSS at this time.
== END 2023-04-27 18:30 | disposition home or self-care (01) ==
PROVIDERS: PCP Student in an Organized Health Care Education/Training Program; Referring Provider Obstetrics & Gynecology; Visit Provider Obstetrics & Gynecology
PROC: (CPT 56620; principal; 2023-04-27 12:15)
DX: N90.60 Unspecified hypertrophy of vulva (principal); N90.89 Other specified noninflammatory disorders of vulva and perineum; Z12.4 Encounter for screening for malignant neoplasm of cervix
CPT/HCPCS: 56620; 11200; 81025; J0171; J0690; J1100; J1170; J1885; J2250; J2405; J2704; J3010

== ENCOUNTER 2023-08-06 13:49 | Emergency (ER) | payer BC, OTHER, MEDICAID, SELFPAY ==
[2023-08-06 14:06] VITALS: BP 140/83; PULSE 107; RESP 20; TEMP 36.9; O2SAT 100; BMI 42.0
[2023-08-06 14:26] LABS: Add Manual Diff / Slide Review NO; Basophils Absolute Auto 100 /uL (0-100); Basophils Percent Auto 0.7 % (0-2); Eosinophils Absolute Auto 100 /uL (0-450); Eosinophils Percent Auto 1.2 % (2-4); Hematocrit 39.8 % (36-46); Hemoglobin 13.1 g/dL (12.0-16.0); Lymphocytes Absolute Auto 2400 /uL (1100-4500); Lymphocytes Percent Auto 23.1 % (25-40); Mean Corpuscular HGB Conc 32.8 % (30-36); Mean Corpuscular Hemoglobin 27.4 PG (26-34); Mean Corpuscular Volume 83.3 fL (80-100); Monocytes Absolute Auto 500 /uL (0-900); Monocytes Percent Auto 4.6 % (3-14); Neutrophils Absolute Auto 7400 /uL (1500-7000); Neutrophils Percent Auto 70.4 % (50-75); Platelet Count 341 X10^3/uL (150-400); Red Blood Cell Count 4.78 X10^6/uL (4.0-5.2); White Blood Cell Count 10.6 X10^3/uL (4.5-11.0)
[2023-08-06 14:39] LABS: Acetaminophen < 10 ug/mL (10-30); Alanine Aminotransferase 17 IU/L (<35); Albumin 4.4 g/dL (3.5-5.0); Albumin Globulin Ratio 1.3 (1.0-2.8); Alkaline Phosphatase 103 U/L (38-126); Aspartate Aminotransferase 25 IU/L (14-36); BUN Creatinine Ratio 20.4 (6-22); Bilirubin Total 0.4 mg/dL (0.2-1.3); Blood Urea Nitrogen 11 mg/dL (7-17); Calcium 8.9 mg/dL (8.4-10.2); Carbon Dioxide 24 mmol/L (22-32); Chloride 105 mmol/L (98-107); Estimated Glomerular Filt Rate > 60 mL/min (>60); Ethanol (ETOH) < 10 mg/dL; Globulin 3.4 g/dL (1.7-4.1); Glucose 94 mg/dL (70-100); HEMOLYSIS < 15 (0-50); Potassium 3.8 mmol/L (3.4-5.1); Salicylate < 1.0 mg/dL (<20); Sodium 137 mmol/L (137-145); Total Protein 7.8 g/dL (6.3-8.2)
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
[2023-08-06 14:56] LABS: Free T4, Direct Thyroxine 1.09 ng/dL (0.78-2.19)
[2023-08-06 15:10] LABS: Thyroid Stimulating Hormone 0.899 uIU/mL (0.47-4.68)
[2023-08-06 15:16] LABS: Ur Creatinine Normal (Normal); Ur Specific Gravity Normal (Normal); Urine Amphetamines Negative (Negative); Urine Barbiturates Negative (Negative); Urine Benzodiazepines Negative (Negative); Urine Cocaine Negative (Negative); Urine MDMA Negative (Negative); Urine Methadone Negative (Negative); Urine Methamphetamines Negative (Negative); Urine Opiates Negative (Negative); Urine Oxycodone Negative (Negative); Urine Phencyclidine Negative (Negative); Urine THC Positive (Negative); Urine Tricyclic Antidepressant Negative (Negative); Urine pH Normal (Normal)
[2023-08-06 15:21] LABS: Bacteria Urine None Seen; RBC Urine None Seen (0-5/HPF); Urine Volume 10mL (spun); WBC Urine 0-1/HPF (0-5/HPF)
--- NOTE | 2023-08-06 15:21 | PC.NURSE ---
pt is resting in bed respirations even and unlabored this sitter remains at bedside
[2023-08-06 15:22] LABS: Culture Indicated Urine Specimen Cultured; Mucus Urine 2+ (Negative); Squamous Epithelial Cell Urine 5-10 /HPF (0-5/HPF)
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
[2023-08-06 15:44] LABS: COVID19 -Nasal RAPID Negative (Negative)
--- NOTE | 2023-08-06 15:57 | PC.NURSE ---
pt on the phone with therapist explaining her situation. pt informed therapist that her dad is aware and that she is trying to reach someone but they did not machine operator hop picker but she's sure that that someone will eventually find out. pt informed therapist [place], this sitter remains at bedside
[2023-08-06] MEDS: diazePAM 5 MG TABLET PO ×2 (16:00→19:35)
[2023-08-06] MEDS: ACETAMINOPHEN 325 MG TABLET 975 MG PO (16:00)
--- NOTE | 2023-08-06 16:17 | PC.NURSE ---
area where pt got blood drawn was actively bleeding so this tech went to go wrap the area with coband told pt sorry if it's too tight and hurting you pt stated i jim wanna so i dont really care about pain, sorry bad joke pt declined water said ice chips would be better, ice chips provided this sitter remains at bedside
--- NOTE | 2023-08-06 16:36 | PC.NURSE ---
coloring book and crayons provided
--- NOTE | 2023-08-06 18:47 | CM.SWNOTE ---
ED RENEWAL SPECIALIST Note RENEWAL SPECIALIST calls [facility], it is reported they have one female bed and can review patient. RENEWAL SPECIALIST faxes clinicals for review. [facility] calls back and states they had a patient walk into their ED and they no longer have beds, but may have discharges tomorrow. RENEWAL SPECIALIST calls [facility], It is reported they might have beds and to fax a packet, RENEWAL SPECIALIST faxes clinicals for review. [facility] calls back and states they cannot accommodate patient this evening, they will have discharges tomorrow. RENEWAL SPECIALIST attempts to call [facility], no answer. RENEWAL SPECIALIST calls [facility] and it is reported they have beds available, RENEWAL SPECIALIST faxes clinicals for review. ED to continue to seek voluntary BH placement for patient. Iram Mccormick, CLINICAL QUALITY ASSURANCE SPECIALIST
--- NOTE | 2023-08-06 19:03 | PC.NURSE ---
pt asked for her phone to be removed saying mean things to her through text pt tearful RN nadira talking to her bedside
--- NOTE | 2023-08-06 19:15 | PC.NURSE ---
Pt asked since I am voluntarily here, can I just voluntarily leave. She was very tearful. ARIK Walden and Dr. Msa notified.
[2023-08-06] MEDS: hydrOXYzine HCL 25 MG TABLET PO (19:35)
--- NOTE | 2023-08-06 20:32 | PC.NURSE ---
Pt was accepted at [facility] by Huang Escalera DNP. Will have a bed at 0700 on 08/07/23. [address] which is all female unit. This sitter updated the pt on her bed placement at [facility]
[2023-08-07] MEDS: diazePAM 5 MG TABLET PO (04:46)
--- NOTE | 2023-08-07 04:48 | PC.NURSE ---
Pt awake and sitting at bedside coloring. States that she is feeling very nervous about the ride to [facility] and that she would like something for anxiety. Dr Mas notified. New orders received.
[2023-08-07 05:00] VITALS: BP 115/78; PULSE 79; RESP 18; O2SAT 96
--- NOTE | 2023-08-07 05:51 | PC.NURSE ---
[facility] pt accepts cant arrive until 0700 Huang Escalera DNP [address] [place] (all female) Report # [phone]
[2023-08-07 06:34] VITALS: BP 114/65; PULSE 85; RESP 15; TEMP 37.3; O2SAT 98
[2023-08-07 07:24] VITALS: BP 137/89; PULSE 94; RESP 16; TEMP 36.2; O2SAT 95
== END 2023-08-07 07:25 | disposition short-term general hospital (02) ==
PROVIDERS: Emergency Medicine; Emergency Provider Emergency Medicine; PCP Student in an Organized Health Care Education/Training Program
DX: R45.851 Suicidal ideations (principal); F32.A Depression, unspecified; F43.11 Post-traumatic stress disorder, acute
CPT/HCPCS: 36415; 80053; 80305; 80320; 80329; 81003; 81015; 81025; 84439; 84443; 85025; 87086; 87635; 99284; A9270; G0480